=== PATIENT | female | born 1985 | race Caucasian/White ===

== ENCOUNTER 2017-04-03 13:00 | Inpatient (IN) | payer OTHER ==
[~2017-04-03] VITALS: Ht 157.5 cm; Wt 71.2 kg
[2017-04-15] MEDS ORDERED: PRENATAL TABLE1 EAC4 PO (08:36)
== END 2017-04-17 14:08 | disposition home or self-care (01) | DRG 775 ==
LOC: LDR 04-15 06:01 → SURG-SUITE 04-15 06:01 → LDR 04-15 06:11 → SURG-SUITE 04-15 17:59 → OB/GYN 04-23 13:00
PROC: 10E0XZZ Delivery of Products of Conception, External Approach (ICD-10-PCS; principal; 2017-04-15)
PROC: 0W8NXZZ Division of Female Perineum, External Approach (ICD-10-PCS; 2017-04-15)
PROC: 3E033VJ Introduction of Other Hormone into Peripheral Vein, Percutaneous Approach (ICD-10-PCS; 2017-04-15)
PROC: 4A1HXCZ Monitoring of Products of Conception, Cardiac Rate, External Approach (ICD-10-PCS; 2017-04-15)
DX: O99.824 Streptococcus B carrier state complicating childbirth (principal); Z3A.38 38 weeks gestation of pregnancy; Z37.0 Single live birth

== ENCOUNTER 2022-02-06 07:19 | Outpatient (CLI) | payer OTHER ==
[~2022-02-06 07:19] MED LIST: PRENATAL TABLE1 EAC4 PO
== END 2022-02-06 09:23 | disposition home or self-care (01) ==
LOC: NST 07:19
PROVIDERS: ATTEND Obstetrics & Gynecology
DX: Z34.83 Encounter for supervision of other normal pregnancy, third trimester (principal)

== ENCOUNTER 2022-02-13 08:30 | Inpatient (IN) | payer OTHER ==
[~2022-02-13] VITALS: Ht 157.5 cm; Wt 1.4 kg
== END 2022-02-21 10:20 | disposition home or self-care (01) | DRG 783 ==
LOC: LDR 02-17 16:32 → OB/GYN 02-17 22:07
PROVIDERS: ADMIT Obstetrics & Gynecology; ATTEND Obstetrics & Gynecology
PROC: 0UB70ZZ Excision of Bilateral Fallopian Tubes, Open Approach (ICD-10-PCS; 2022-02-17)
PROC: 4A1HXCZ Monitoring of Products of Conception, Cardiac Rate, External Approach (ICD-10-PCS; 2022-02-17)
PROC: 10D00Z1 Extraction of Products of Conception, Low, Open Approach (ICD-10-PCS; principal; 2022-02-17 19:30)
DX: O36.5932 Maternal care for other known or suspected poor fetal growth, third trimester, fetus 2 (principal); O60.14X2 Preterm labor third trimester with preterm delivery third trimester, fetus 2; O30.033 Twin pregnancy, monochorionic/diamniotic, third trimester; Z3A.34 34 weeks gestation of pregnancy; Z37.2 Twins, both liveborn; Z20.822 Contact with and (suspected) exposure to COVID-19; Z30.2 Encounter for sterilization